=== PATIENT | male | born 1975 | race African-American/Black ===

== ENCOUNTER 2017-04-26 06:01 | Day surgery (SDC) | payer OTHER ==
[2017-04-17 10:23] VITALS: BMI 29.8
[2017-04-26] MEDS ORDERED: ROPIVACAINE HCL 0.5% 30ML VIAL ONE (08:15)
[2017-04-26] MEDS ORDERED: MIDAZOLAM HCL 2 MG/2 ML SINGLE DOSE VIAL ONE ×3 (08:28→09:00)
--- NOTE | 2017-04-26 08:55 | HP ---
Satellite [facility] - Chief Complaint Chief Complaint: left shoulder pain History of Present Illness: left shoulder impingement, labral tear History Source: Patient Limitations to Obtaining History: No Limitations - Past Medical History Allergies/Adverse Reactions: Allergies Allergy/AdvReac Type Severity Reaction Status Date / Time No Known Allergies Allergy Verified 04/26/17 07:42 - Current Medications Current Medications: Home Medications Medication Instructions Recorded Naproxen [Naprosyn -] 500 mg PO BID 04/26/17 Satellite Physical Exam - Physical Examination Vital Signs: Vital Signs Period Temp Pulse Resp BP Sys/Jennings Pulse Ox Last 24 Hr 98.2 F 81 20 134/83 99 General Appearance: Well Nourished ENT: Clear Lung: Clear to auscultation Heart: Regular rate & rhythm Breasts: Soft Abdomen: Soft Extremities: No edema Satellite Impression/Plan - Impression/Plan Impression: left shoulder impingement syndrome, labral tear Operative Procedure: left shoulder arthroscopy, decompression, possible labral tear Date to be Performed: 04/26/17
[2017-04-26] MEDS ORDERED: LIDOCAINE HCL/PF 2% SDV 5ML VIAL ONE (08:59)
[2017-04-26] MEDS ORDERED: PROPOFOL 20 ML ONE ×2 (08:59)
[2017-04-26] MEDS ORDERED: ceFAZolin SODIUM 1 GM VIAL ONE (08:59)
[2017-04-26] MEDS ORDERED: DEXAMETHASONE SOD PHOSPHATE 4 MG/1 ML VIAL ONE (08:59)
[2017-04-26] MEDS ORDERED: oxyCODONE HCL 5 MG TABLET PO PRN (09:08)
[2017-04-26] MEDS ORDERED: ONDANSETRON 4 MG/2 ML VIAL IVPUSH PRN (09:08)
[2017-04-26] MEDS ORDERED: LACTATED RINGERS SOLUTION 1,000 ML IV SCH (09:15)
[2017-04-26] MEDS ORDERED: ROCURONIUM BROMIDE 50 MG/5 ML VIAL ONE ×2 (09:19→10:28)
[2017-04-26] MEDS ORDERED: ceFAZolin SODIUM 1 GM VIAL IVPB ONE (09:31)
[2017-04-26] MEDS ORDERED: LABETALOL HCL 5 MG/1 ML (100MG/20 ML VIAL) ONE (10:46)
--- NOTE | 2017-04-26 11:12 | OP ---
Operative Note - Note: Operative Date: 04/26/17 Pre-Operative Diagnosis: left shoulder impingement, ACJ OA, Labral tear Operation: left shoulder arthroscopy, subacromial decompression, distal clavicle excision, Labral repair Implants: 2x Arthrex Push Lock Anchors Surgeon: Skip Richard Review Scheduling Coordinator: Ede Vallecillo Anesthesiologist/SKIN CARE TECHNICIAN: Hansel Melendrez Specimens Removed: shavings Estimated Blood Loss (mls): 75 Drains, Volume Out (mls): 0 Blood Volume Replaced (mls): 0 Fluid Volume Replaced (mls): 500 Operative Report Dictated: Yes
[2017-04-26] MEDS ORDERED: NEOSTIGMINE METHYLSULFATE 0.5 MG/ML - 10 ML MDV ONE ×2 (11:23)
[2017-04-26] MEDS ORDERED: GLYCOPYRROLATE 0.2 MG/1 ML VIAL ONE (11:23)
[2017-04-26 12:30] VITALS: TEMP 98
[2017-04-26] MEDS ORDERED: oxyCODONE HCL 5 MG TABLET ONE (14:15)
[2017-04-26 15:41] VITALS: BP 149/90; PULSE 82
--- NOTE | 2017-04-27 08:12 | OP ---
DATE OF OPERATION: 04/26/2017 PREOPERATIVE DIAGNOSIS: Left shoulder subacromial impingement and labral tear. POSTOPERATIVE DIAGNOSIS: Left shoulder subacromial impingement and labral tear. PROCEDURE: Left shoulder arthroscopy, subacromial decompression, distal clavicle excision, and arthroscopic labral repair. SURGEON: Anum Motley MD DIGITAL MEDIA MANAGER: EMILY Del Cid ANESTHESIOLOGIST: Hansel Krueger MD and Hansel Melendrez CRNA ANESTHESIA: Left interscalene block with LMA. DRAINS: None. COMPLICATIONS: None. BLOOD LOSS: Minimal. BLOOD GIVEN: None. FLUID REPLACEMENT: 1000 mL INDICATION FOR PROCEDURE: This patient is a 42-year-old male with a preoperative diagnosis of a left shoulder impingement syndrome and a labral tear. After understanding the potential risks, complications, alternatives, and benefits of surgery versus nonsurgical treatment, the patient elected to undergo this procedure. DESCRIPTION OF PROCEDURE: Patient was brought to the operating room, peripheral IV placed, IV sedation given. Two grams of IV Ancef were given. LMA anesthesia was induced. A left interscalene block was performed. He was placed into the beach chair position with ample padding throughout. The left upper extremity was prepped and draped in sterile fashion. Bony landmarks were marked out with a marking pen. A posterior portal was established. Diagnostic glenohumeral arthroscopy was performed. The rotator cuff looked good. Biceps tendon looked good. There was no glenohumeral osteoarthritis. The patient did have an anterior labral tear. Two anterior portals were established. The probe was introduced into the glenohumeral joint. It was probed, and indeed, the anterior labrum was torn from the 9 o'clock to the 12 o'clock position. Superiorly and posteriorly, he felt stable. Then, using the standard technique, I put in 2 Arthrex labral repair PushLock anchors. Photographs were taken before and after. Next, our attention turned to the subacromial space. A lateral portal was established with spinal needle under direct visualization, and patient was seen to have a tremendous amount of inflammatory bursitis. An extensive debridement/bursectomy was performed with the ArthroCare wand, revealing an extremely large subacromial and subclavicular spurs. Using a combination of the ArthroCare wand, the 5.5-mm oval bur, and a straight shaver, I removed the subacromial and subclavicular spurs. It was fine-tuned in reverse and then the shaver. All debris was removed. The top of the rotator cuff was directly visualized and seen to be intact with motion of the arm. Photographs were taken of the distal clavicle and subacromial decompression. Of note, there were 2 extremely large spurs. The area was copiously irrigated and washed out. All instrumentation removed. The arthroscopy portals closed with 3-0 nylon sutures. The areas were washed and dried, covered with Aquacel dressing. He was placed into a shoulder immobilizer. Total operative time was about 1 hour. There were no complications during the case. The patient tolerated the procedure quite well and was brought to the ambulatory recovery room in stable condition. ANUM MOTLEY M.D. [id number]
--- NOTE | 2017-04-27 15:52 | PATH ---
Surgical Pathology Report Patient Name: ANGELA QUEZADA Med. Rec. #: [id number] /Age/Gender: 1975 (Age: 42) / M Account: [id number] Location: [facility] SURGICAL Taken: 04/26/2017 Received: 04/26/2017 Reported: 04/27/2017 Physicians: Skip Richard M.D. Specimen(s) Received LEFT SHOULDER SHAVINGS Clinical History Left shoulder tear Final Diagnosis LEFT SHOULDER, ARTHROSCOPIC SHAVING: PORTIONS OF SYNOVIUM, CARTILAGE, SKELETAL MUSCLE AND BONE CONSISTENT WITH ARTHROSCOPIC SHAVINGS. Electronically Signed Antonio Coyne M.D. Gross Description Received in formalin, labeled "left shoulder shavings," is a 5.0 x 5.0 x 1.0 cm. aggregate of ruggiero-red soft tissue fragments admixed with blood clot. A patient financial representative portion is submitted in one cassette. /04/26/201704/26/2017
== END 2017-04-26 15:30 | disposition home or self-care (01) ==
LOC: JASU-SURG 06:01 → MERGE 06:01 → JASU-SURG 15:30
PROVIDERS: ATTEND Orthopaedic Surgery
PROC: 0PBB4ZZ Excision of Left Clavicle, Percutaneous Endoscopic Approach (ICD-10-PCS; 2017-04-26)
PROC: 0RQK4ZZ Repair Left Shoulder Joint, Percutaneous Endoscopic Approach (ICD-10-PCS; 2017-04-26)
PROC: 0RBK4ZZ Excision of Left Shoulder Joint, Percutaneous Endoscopic Approach (ICD-10-PCS; principal; 2017-04-26 09:00)
DX: M75.42 Impingement syndrome of left shoulder (principal); S43.492A Other sprain of left shoulder joint, initial encounter; X58.XXXA Exposure to other specified factors, initial encounter; Y93.9 Activity, unspecified; Y92.9 Unspecified place or not applicable; Y99.9 Unspecified external cause status; M75.52 Bursitis of left shoulder
CPT/HCPCS: 88304-TC; 94760

== ENCOUNTER 2017-11-13 08:28 | Emergency (ER) | payer OTHER ==
[2017-11-13 08:41] VITALS: BP 142/82; PULSE 88; TEMP 97.5; BMI 29.8
[2017-11-13] MEDS ORDERED: IBUPROFEN 600 MG TABLET (FP) PO ONE ×2 (09:04→09:08)
--- NOTE | 2017-11-13 09:04 | PDOC ---
History of Present Illness - General Chief Complaint: Injury Stated Complaint: INJURY Time Seen by Provider: 11/13/17 08:51 History Source: Patient Exam Limitations: No Limitations - History of Present Illness Initial Comments: CHIEF COMPLAINT: 42 y/o male with right knee injury a few weeks ago. HISTORY OF PRESENT ILLNESS: The patient states he slipped a few weeks ago and twisted his right knee. He has been having random minor swelling and pain. He denies instability. Vital signs on arrival are within normal limits. REVIEW OF SYSTEMS: GENERAL/CONSTITUTIONAL: No fever/chills. No weakness. No weight change. MUSCULOSKELETAL: +right knee pain. No neck or back pain. SKIN: No rash or easy bruising. NEUROLOGIC: No headache, vertigo, loss of consciousness, or loss of sensation. PHYSICAL EXAM: VITAL_SIGNS: within normal limits GENERAL_APPEARANCE: alert, cooperative, no obvious discomfort. Patient has normal gait. MENTAL_STATUS: speech clear, oriented X 3, responds appropriately to questions. NEURO: motor intact and sensory intact in injured extremity. EXTREMITIES: right knee without erythema or edema. TTP of right medial joint line. Negative Lachmann's test. SKIN: warm, dry, good color. Past History - Past Medical History Allergies/Adverse Reactions: Allergies Allergy/AdvReac Type Severity Reaction Status Date / Time No Known Drug Allergies Allergy Verified 11/13/17 08:38 Home Medications: Ambulatory Orders NK [No Known Home Medication] 11/13/17 Anemia: No Asthma: No Cancer: No Cardiac Disorders: No CVA: No COPD: No CHF: No DVT: No Dementia: No Diabetes: No GI Disorders: No Disorders: No HTN: No Hypercholesterolemia: No Liver Disease: No Seizures: No Thyroid Disease: No - Surgical History Abdominal Surgery: No Appendectomy: No Cardiac Surgery: No Cholecystectomy: No Lung Surgery: No Neurologic Surgery: No Orthopedic Surgery: Yes (LEFT BICEP TENDON REPAIR) - Suicide/Smoking/Psychosocial Hx Smoking Status: Yes Smoking History: Current every day smoker Have you smoked in the past 12 months: Yes Number of Cigarettes Smoked Daily: 3 Information on smoking cessation initiated: Yes 'Breaking Loose' booklet given: 11/13/17 Hx Alcohol Use: No Drug/Substance Use Hx: No Substance Use Type: Marijuana Hx Substance Use Treatment: No *Physical Exam - Vital Signs Last Vital Signs Temp Pulse Resp BP Pulse Ox 97.5 F L 88 18 142/82 100 11/13/17 08:38 11/13/17 08:38 11/13/17 08:38 11/13/17 08:38 11/13/17 08:38 Medical Decision Making - Medical Decision Making A/P: 42 y/o male with right knee pain. Most likely meniscus tear. Provided VANESSA bandage and PO Ibuprofen. Provided him with supportive care instructions and Ortho referral. Instructed him to return to the ER with any worsening or concerning symptoms. The patient verbalizes understanding of all instructions, has no further questions and is awaiting discharge. *DC/Admit/Observation/Transfer Diagnosis at time of Disposition: Knee pain Qualifiers: Chronicity: acute Laterality: right Qualified Code(s): M25.561 - Pain in right knee - Discharge Dispostion Disposition: HOME Condition at time of disposition: Good - Referrals Referrals: Brianna Toro [Primary Care Provider] - Yg Heller MD [Staff Physician] - - Patient Instructions Printed Discharge Instructions: How To Perform RICE (Rest, Ice, Compress, Elevate), DI for Knee Pain Additional Instructions: Discharge Instructions: -Take 600mg of over the counter Ibuprofen every 6 hours with food for pain and swelling -Use VANESSA bandage to help with swelling and for comfort. -Follow up with Dr. Heller for further testing -Return to the ER with any worsening or concerning symptoms - Post Discharge Activity Forms/Work/School Notes: Back to Work
== END 2017-11-13 09:12 | disposition home or self-care (01) ==
LOC: JERFT 08:28
DX: S89.81XA Other specified injuries of right lower leg, initial encounter (principal); W01.0XXA Fall on same level from slipping, tripping and stumbling without subsequent striking against object, initial encounter; Y93.89 Activity, other specified; Y92.22 Religious institution as the place of occurrence of the external cause; Y99.0 Civilian activity done for income or pay; F17.210 Nicotine dependence, cigarettes, uncomplicated
CPT/HCPCS: 99281-25

== ENCOUNTER 2019-04-20 12:13 | Emergency (ER) | payer OTHER | END 2019-04-20 14:41 | disposition home or self-care (01) | LOC: JERFT 12:13 ==